=== PATIENT | male | born 1955 | race Hispanic/Latino ===

== ENCOUNTER 2017-04-22 21:55 | Inpatient (IN) | payer MEDICARE ==
[2017-04-22 22:18] VITALS: O2SAT 100
[2017-04-22] MEDS ORDERED: DiphenhydrAMINE 50 mg/ml Inj IM PRN (22:28)
[2017-04-22] MEDS ORDERED: Magnesium Hydroxide Susp 30 ml UD PO PRN (22:28)
[2017-04-23 09:13] LABS: T4 11.4 ug/dl (5.5-11.0)
[2017-04-23 09:27] LABS: THYROID STIMULATING HORMONE 3.56 mIU/ML (0.46-4.68)
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
--- NOTE | 2017-04-23 14:14 | CP.PCM.CON ---
History of Present Illness - History of Present Illness History of Present Illness: Reason for Consult: per hospital protocol CC: depression HPI 62 year old male admitted from [facility] for overdose. Patient states he has been depressed, currently admitted to psych. No other medical history. ROS: per HPI, 12 systems reviewed and negative PMH: denies PSH: denies FH: stomach CA SH: denies tobacco, ETOH, IVDU Meds: as below Allergies: NKDA Vitals: reviewed and currently stable Exam: GEN: WDWN, alert, cooperative HEENT: NCAT, PERRL, EOMI NECK: supple, no JVD, no lymphadenopathy CARDIAC: +S1S2 RRR LUNG: CTAB No WRR ABD: SOFT NT ND BSX4 NO MASSES NO HSM EXT: +pedal pulses, equal strength NEURO: AAOx3 SKIN warm, dry PSYCH normal mood, normal affect Labs: none Assessment and Plan: 62 year old male admitted from [facility] for overdose. Patient states he has been depressed, currently admitted to psych. No other medical history. Depression management per psych Past Patient History - MUSCULOSKELETAL/RHEUMATOLOGICAL Hx Arthritis: Yes - ANESTHESIA Hx Anesthesia: No Meds Allergies/Adverse Reactions: Allergies Allergy/AdvReac Type Severity Reaction Status Date / Time No Known Allergies Allergy Verified 04/22/17 22:02 - Medications Medications: Current Medications Acetaminophen (Tylenol 325mg Tab) 650 mg PO Q4 PRN PRN Reason: pain 1-7,headache,T>101.0 Diphenhydramine HCl (Benadryl) 50 mg IM Q6 PRN PRN Reason: Extrapyramidal S/S Unable PO Diphenhydramine HCl (Benadryl) 50 mg PO Q6 PRN PRN Reason: Extrapyramidal Symptoms Last Admin: 04/22/17 23:23 Dose: 50 mg Diphenhydramine HCl (Benadryl) 50 mg PO HS PRN PRN Reason: Sleep Haloperidol (Haldol) 5 mg PO Q4 PRN PRN Reason: Agitation Haloperidol Lactate (Haldol) 5 mg IM Q4 PRN PRN Reason: Agitation, Unable to Take PO Lorazepam (Ativan) 2 mg IM Q4 PRN PRN Reason: Anxiety/Agitation,Unable PO Lorazepam (Ativan) 2 mg PO Q4 PRN PRN Reason: Anxiety/Agitation Magnesium Hydroxide (Milk Of Magnesia) 30 ml PO HS PRN PRN Reason: Constipation Mirtazapine (Remeron) 15 mg PO HS JOSELUIS Quetiapine Fumarate (Seroquel) 100 mg PO HS JOSELUIS Sertraline HCl (Zoloft) 25 mg PO DAILY [facility] Results - Vital Signs Recent Vital Signs: Last Vital Signs Temp 97.5 F L 04/23/17 09:00 Pulse 76 04/23/17 09:00 Resp 18 04/23/17 09:00 BP 128/84 04/23/17 09:00 Pulse Ox 100 04/22/17 22:02 - Labs Labs: Laboratory Results - last 24 hr 04/23/17 04/23/17 08:30 08:30 Hemoglobin A1c 5.5 Triglycerides 130 Cholesterol 144 LDL Cholesterol Direct 65 HDL Cholesterol 33 Thyroxine (T4) 11.4 H Total T3 1.56 TSH 3rd Generation 3.56
--- NOTE | 2017-04-24 12:46 | PCM.PYCHPN ---
Psychiatric Progress Note - Psychiatric Progress Note Patient seen today, length of contact: discussed with team Patient Chief Complaint: i am ok Problems Identified/Issues Discussed: sleep improved. no c/o medication side effects. remains depressed. participates in groups. Medication Change: Yes (inc. prozac) Medical Record Reviewed: Yes Mental Status Examination - Cognitive Function Orientation: Person, Place, Situation, Time Memory: Intact Attention: WNL Concentration: WNL Association: WNL Fund of Knowledge: [facility] Decription of patient's judgement and insights: fair - Mood Mood: Depressed, Anxious - Affect Affect: Depressed - Speech Speech: Appropriate - Formal Thought Process Formal Thought Process: No Impairment - Suicidal Ideation Suicidal Ideation: No - Homicidal Ideation Homicidal Ideation: No Goal/Treatment Plan - Goal/Treatment Plan Need for Continued Stay: Remain at risks for inpatient hospitalization, Severe functional impairment Progress Toward Problem(s) and Goals/Treatment Plan: mdd recurrent moderate encourage participation in groups increase zoloft to 50mg disposition planning- discharge next week. Estimated Date of D/C: 04/27/17
--- NOTE | 2017-04-25 08:17 | PCM.PYCHPN ---
Psychiatric Progress Note - Psychiatric Progress Note Patient seen today, length of contact: discussed with team Patient Chief Complaint: pt is doing better .pt is less depressed and less anxious and denies side effects to meds . DSM 5 Symptoms Update: major depression Medication Change: Yes (inc. prozac) Medical Record Reviewed: Yes Mental Status Examination - Cognitive Function Orientation: Person, Place, Situation, Time Memory: Intact Attention: WNL Concentration: WNL Association: WNL Fund of Knowledge: WNL - Mood Mood: Depressed, Anxious - Affect Affect: Depressed - Speech Speech: Appropriate - Formal Thought Process Formal Thought Process: No Impairment - Suicidal Ideation Suicidal Ideation: No - Homicidal Ideation Homicidal Ideation: No Goal/Treatment Plan - Goal/Treatment Plan Need for Continued Stay: Remain at risks for inpatient hospitalization, Severe functional impairment Progress Toward Problem(s) and Goals/Treatment Plan: will continue to stabilize with meds and initiate d/ c planning when stable Estimated Date of D/C: 04/27/17
--- NOTE | 2017-04-26 14:57 | PCM.PYCHPN ---
Psychiatric Progress Note - Psychiatric Progress Note Patient seen today, length of contact: discussed with team Patient Chief Complaint: pt is doing better .pt is less depressed and less anxious and denies side effects to meds . DSM 5 Symptoms Update: depression Medication Change: Yes (inc. prozac) Medical Record Reviewed: Yes Mental Status Examination - Cognitive Function Orientation: Person, Place, Situation, Time Memory: Intact Attention: WNL Concentration: WNL Association: WNL Fund of Knowledge: WNL - Mood Mood: Depressed, Anxious - Affect Affect: Depressed - Speech Speech: Appropriate - Formal Thought Process Formal Thought Process: No Impairment - Suicidal Ideation Suicidal Ideation: No - Homicidal Ideation Homicidal Ideation: No Goal/Treatment Plan - Goal/Treatment Plan Need for Continued Stay: Remain at risks for inpatient hospitalization, Severe functional impairment Progress Toward Problem(s) and Goals/Treatment Plan: will continue to stabilize with meds and initiate d/ c planning when stable Estimated Date of D/C: 04/27/17
--- NOTE | 2017-04-27 15:10 | PCM.PYCHPN ---
Psychiatric Progress Note - Psychiatric Progress Note Patient seen today, length of contact: discussed with team Patient Chief Complaint: i feel better Problems Identified/Issues Discussed: sleep continues to be good. he is attending groups on the 3[facility] unit. he states he is feeling hopeful and that he has been given a second chance in life. his psychiatrist has agreed to initiate talk therapy in addition to medications. Medication Change: No ( ) Medical Record Reviewed: Yes Mental Status Examination - Cognitive Function Orientation: Person, Place, Situation, Time Memory: Intact Attention: WNL Concentration: WNL Association: WNL Fund of Knowledge: [facility] Decription of patient's judgement and insights: fair - Mood Mood: Depressed, Anxious - Affect Affect: Depressed - Speech Speech: Appropriate - Formal Thought Process Formal Thought Process: No Impairment Psychotic Thoughts and Behaviors: denies a/v hallucinations - Suicidal Ideation Suicidal Ideation: No - Homicidal Ideation Homicidal Ideation: No Goal/Treatment Plan - Goal/Treatment Plan Need for Continued Stay: Remain at risks for inpatient hospitalization, Severe functional impairment Progress Toward Problem(s) and Goals/Treatment Plan: mdd recurrent moderate encourage participation in groups continue current medications disposition planning- discharge tomorrow Estimated Date of D/C: 04/27/17
[2017-04-28 06:09] VITALS: BP 118/73; PULSE 75; RESP 18; TEMP 97.1
--- NOTE | 2017-04-28 12:23 | PCM.PYCHDC ---
Mental Status Examination - Mental Status Examination Orientation: Person, Place, Situation, Time Memory: Intact Mood: Neutral Affect: Broad Speech: Appropriate Attention: WNL Concentration: WNL Association: WNL Fund of Knowledge: WNL Formal Thought Process: No Impairment Description of patient's judgement and insight: fair Psychotic Thoughts and Behaviors: denies a/v hallucinations Suicidal Ideation: No Current Homicidal Ideation?: No Plan: pt denied suicidal or homicidal thoughts/plan Discharge Summary - Discharge Note Reason for Hospitalization: pt overdose on medications/alcohol in context of depression Psychiatric History (includes Medical, Family, Personal Hx): history of recent treatment for depression Consultations:: List each consultation separately and include: 1. Reason for request. 2. Findings. 3. Follow-up Consultations: seen by hospitalist Summary of Hospital Course include:: 1. Description of specific treatment plan utilized for patients during their course of treatmen. 2. Summarize the time- course for resolution of acute symptoms and/or regressed behaviors. 3. Describe issues identified and worked on during hospitalization. 4. Describe medication utilized. 5. Describe medical problems identified and treated. 6. Reassessment of suicide risk Summary of Hospital Course: 62 yo single male from [place], [place]. he is tranfered from a medical unit there where he presented after an overdose of alcohol and his medications. he states he was feeling upset and lonely and was taking the medications after he started drinking. he was expecting a friend to come over and took extra medication out of anger when the friend did not come. he reports he got anxious and called a friend for help. he was intubated and in icu for at least two days. he reports he has been depressed since his mother in 2011. he reports little contact with his family. he reports he feels frequently anxious, sad and has low energy. he reports until he was taking his medications he was having trouble sleeping. he reports he feels lonely a lot. he reports that he came out to his parents when he was 19 and his mother had always remained supportive. he denies that he wants to kill himself now. he reports his current medications were helpful in terms of sleep. he reports that he would like to be referred to a therapist. hospital course pt was admitted to [facility] and oriented to the unit. pt placed on routine safety protocols. pt started on medications to target his depression- restarted on his seroquel and remeron and was started on zoloft and dose titrated up to 50mg daily. pt denied any side effects. he reported improved sleep. he participated in groups. his mood improved and his affect brightened. his psychiatrist agreed to start psychotherapy in addition to medication management with the patient. at the time of discharge the pt was denying any suicidal or homicidal thoughts. - Final Diagnosis (DSM 5) Condition upon Discharge: STABLE DSM 5: major depression, recurrent moderate Disposition: HOME/ ROUTINE Follow-up Treatment Plan: follow up with outpatient providers as directed take medications as prescribed do not use alcohol, tobacco or other illicit substances call 911 if any suicidal or homicidal thoughts Prescriptions/Medication Reconciliation: Mirtazapine [Remeron] 15 mg PO HS #30 tab QUEtiapine [Seroquel] 100 mg PO HS #30 tab Sertraline [Zoloft] 50 mg PO DAILY #30 tab - Smoking Cessation Smoking Cessation Medication prescribed: No - Antipsychotic Medications Pt discharged on 2 or more routine antipsychotic medications: No
== END 2017-04-28 03:10 | disposition home or self-care (01) | DRG 885 ==
LOC: H.ER 21:55 → H.PSYCH 22:23 → H.STEP 04-26 15:40
PROVIDERS: ADMIT Psychiatry & Neurology Psychiatry; ATTEND Psychiatry & Neurology Psychiatry
PROC: GZHZZZZ Group Psychotherapy (ICD-10-PCS; principal; 2017-04-22)
PROC: GZ56ZZZ Individual Psychotherapy, Supportive (ICD-10-PCS; 2017-04-22)
DX: F33.1 Major depressive disorder, recurrent, moderate (principal); K21.9 Gastro-esophageal reflux disease without esophagitis